=== PATIENT | male | born 1970 | race Two or more races ===

== ENCOUNTER 2023-11-19 05:50 | Day surgery (SDC) | payer OTHER ==
[~2023-11-19 05:50] MED LIST: ATORVASTATIN CA20 MG PO; BIDIL TABLET1 EACH; CANDESARTAN CIL32 MG; CARVEDILOL25 M1 PO; ELIQUIS2.5 MG; LANOXIN62.5 MCG
[2023-11-19] MEDS ORDERED: METRONIDAZOLE/SODIUM CHLORIDE 500 MG/100 ML PIGGYBACK IV ONE ×2 (06:16→15:15)
[2023-11-19] MEDS ORDERED: CEFTRIAXONE SODIUM 2,000 MG VIAL ONE (06:16)
[2023-11-19] MEDS ORDERED: DIBUCAINE 30 GM TUBE ONE ×2 (06:57→13:34)
[2023-11-19] MEDS ORDERED: LIDOCAINE HCL 1%/EPINEPHRINE 20ML VIAL IJ ONE ×2 (06:57→13:35)
[2023-11-19] MEDS ORDERED: HEMOSTATIC MATRIX 1 KIT KIT TOP ONE ×2 (06:57→13:35)
[2023-11-19] MEDS ORDERED: BUPIVACAINE HCL/MPF 0.5% 30ML VIAL ONE (06:57)
[2023-11-19] MEDS ORDERED: BUPIVACAINE HCL/Mpf 0.5% 10ML VIAL ONE (13:34)
[2023-11-19] MEDS ORDERED: POVIDONE-IODINE 118 ML BOTT TOP ONE (13:34)
[2023-11-19] MEDS ORDERED: CEFTRIAXONE SODIUM 2,000 MG VIAL IV ONE (14:00)
[2023-11-19] MEDS ORDERED: HYDROGEN PEROXIDE 473 ML BOTTLE TOP ONE (14:10)
== END 2023-11-19 19:10 | disposition home or self-care (01) ==
LOC: CIR.AMB 05:50
PROVIDERS: ATTEND Colon & Rectal Surgery
DX: K60.3 Anal fistula (principal); L92.9 Granulomatous disorder of the skin and subcutaneous tissue, unspecified

== ENCOUNTER 2024-01-14 05:35 | Day surgery (SDC) | payer OTHER ==
[~2024-01-14 05:35] MED LIST changes: +ALDACTONE25 MG PO; +LANOXIN250 MCG PO; +METFORMIN HCL1000 M2 PO
[2024-01-14] MEDS ORDERED: DIBUCAINE 30 GM TUBE RECTAL ONE (08:00)
[2024-01-14] MEDS ORDERED: HEMOSTATIC MATRIX 1 KIT KIT TOP ONE (08:00)
[2024-01-14] MEDS ORDERED: CEFTRIAXONE SODIUM 2,000 MG VIAL IV ONE (08:00)
[2024-01-14] MEDS ORDERED: BUPIVACAINE HCL 30 ML VIAL IJ ONE (08:00)
[2024-01-14] MEDS ORDERED: HYDROGEN PEROXIDE 118 ML SOLUTION TOP ONE (08:00)
[2024-01-14] MEDS ORDERED: POVIDONE-IODINE 118 ML BOTT TOP ONE (08:00)
[2024-01-14] MEDS ORDERED: LIDOCAINE HCL 1%/EPINEPHRINE 20ML VIAL IJ ONE (08:00)
[2024-01-14] MEDS ORDERED: METRONIDAZOLE/SODIUM CHLORIDE 500 MG/100 ML PIGGYBACK IV ONE ×2 (08:00)
[2024-01-14] MEDS ORDERED: INSULIN LISPRO 1,000 UNIT/10 ML UNITS SUBCUTANEO SCH (10:00)
[2024-01-14] MEDS ORDERED: MORPHINE SULFATE 4 MG/ML VIAL IV ONE (12:30)
== END 2024-01-14 14:20 | disposition home or self-care (01) ==
LOC: CIR.AMB 05:35
PROVIDERS: ATTEND Colon & Rectal Surgery
DX: K60.30 Anal fistula, unspecified (principal); L92.9 Granulomatous disorder of the skin and subcutaneous tissue, unspecified

== ENCOUNTER 2024-12-26 10:11 | Emergency (ER) | payer OTHER ==
[~2024-12-26] VITALS: Ht 177.8 cm; Wt 99.8 kg
[2024-12-26] MEDS ORDERED: KETOROLAC TROMETHAMINE 15 MG VIAL IU ONE (11:45)
[2024-12-26] MEDS ORDERED: ACETAMINOPHEN 500 MG GEL..CAP PO ONE (11:45)
[2024-12-26] MEDS ORDERED: 0.9 % SODIUM CHLORIDE 1,000 ML IV ONE (11:45)
[2024-12-26] MEDS ORDERED: FAMOTIDINE/PF 20 MG in 0.9 % SODIUM CHLORIDE 8 ML IV PUSH ONE (11:45)
[2024-12-26 12:39] LABS: BASO % 0.2 % (0.1-1.2); EOS # 0.12 (0.04-0.54); EOS % 1.4 % (0.7-7.0); LYMPH # 1.36 (1.18-3.74); LYMPH % 16.4 % (19.3-53.1); MEAN PLATELET VOLUME 10.10 fl (9.4-12.4); MONO # 0.62 (0.24-0.82); MONO % 7.5 % (4.7-12.5); NEUT # 6.15 (1.56-6.13); NEUT % 74.3 % (34.0-71.1); RED CELL DISTRIBUTION WIDTH 12.2 % (11.6-14.4)
[2024-12-26 12:43] LABS: ERYTHROCYTE SEDIMENTATION RATE 24 mm/hr (0-20)
[2024-12-26 13:09] LABS: INR 1.07
[2024-12-26 13:15] LABS: ALT/SGPT 26.0 U/L (12-78); AST/SGOT 10.0 U/L (15-37); BILIRUBIN TOTAL 0.72 mg/dL (0.3-1.2); BUN CREA RATIO 20.0 (7.0-25.0); CREATININE SERUM 0.85 mg/dL (0.70-1.30); GFR 93.93; GLOBULINA 3.3 G/DL (2.4-3.5); GLUCOSE FASTING 149.0 mg/dL (65-100); OSMOLALITY SERUM 280.0 MOSM/KG (275-295)
[2024-12-26 17:03] LABS: URINE APPEARANCE Clear; URINE BILIRRUBIN Negative (NEGATIVE); URINE BLOOD Negative; URINE COLOR Yellow; URINE GLUCOSE Negative (NEGATIVE); URINE KETONE Negative (NEGATIVE); URINE LEUKOCYTE Negative; URINE NITRATE Negative; URINE PROTEIN Negative (NEGATIVE); URINE UROBILINOGEN 0.2 E.U./dl
[2024-12-26 18:22] LABS: URINE BACTERIA 0 uL (0.0-1933); URINE CAST 0.00 uL (0.0-1.40); URINE EPITHELIAL CELLS 0.3 uL (0.0-38.8); URINE RBC 0.2 uL (0.0-20.8); URINE WBC 0.7 uL (0.0-23.2)
== END 2024-12-26 18:02 | disposition home or self-care (01) ==
LOC: ER 10:11
PROVIDERS: General Practice
DX: L98.8 Other specified disorders of the skin and subcutaneous tissue (principal); I10 Essential (primary) hypertension; I48.91 Unspecified atrial fibrillation